=== PATIENT | female | born 1950 | race Caucasian/White ===

== ENCOUNTER → 2017-04-18 | Outpatient (CLI) | payer MEDICARE | LOC: RAD 09:28 | DX: M19.011 Primary osteoarthritis, right shoulder (principal); M19.012 Primary osteoarthritis, left shoulder ==

== ENCOUNTER 2020-11-29 13:07 | Outpatient (RCR) | payer MEDICARE | END 2021-02-11 | disposition home or self-care (01) | LOC: CARDREHAB 13:07 | DX: Z48.812 Encounter for surgical aftercare following surgery on the circulatory system (principal); Z95.2 Presence of prosthetic heart valve ==

== ENCOUNTER 2020-12-30 10:56 | Outpatient (RCR) | payer MEDICARE | END 2021-02-11 | disposition home or self-care (01) | LOC: PT 10:56 | DX: M25.511 Pain in right shoulder (principal); M25.512 Pain in left shoulder ==

== ENCOUNTER → 2021-01-20 | Outpatient (CLI) | payer MEDICARE | LOC: RAD 12:58 | DX: D17.22 Benign lipomatous neoplasm of skin and subcutaneous tissue of left arm (principal); M19.011 Primary osteoarthritis, right shoulder ==

== ENCOUNTER → 2021-01-26 | Outpatient (CLI) | payer MEDICARE | LOC: MAMMO 10:19 | DX: Z12.31 Encounter for screening mammogram for malignant neoplasm of breast (principal) ==

== ENCOUNTER 2021-02-14 11:00 | Outpatient (RCR) | payer MEDICARE | END 2021-03-14 | disposition home or self-care (01) | LOC: CARDREHAB | DX: Z48.812 Encounter for surgical aftercare following surgery on the circulatory system (principal); Z95.4 Presence of other heart-valve replacement ==

== ENCOUNTER 2021-02-16 10:00 | Outpatient (RCR) | payer MEDICARE | END 2021-02-16 17:00 | disposition home or self-care (01) | LOC: PT 10:00 | DX: M25.511 Pain in right shoulder (principal); M25.512 Pain in left shoulder ==

== ENCOUNTER 2021-05-26 12:56 | Outpatient (RCR) | payer MEDICARE | END 2021-06-11 | disposition home or self-care (01) | LOC: PT | DX: M19.012 Primary osteoarthritis, left shoulder (principal) ==

== ENCOUNTER 2021-06-13 13:00 | Outpatient (RCR) | payer MEDICARE | END 2021-07-12 | disposition home or self-care (01) | LOC: PT | DX: M19.012 Primary osteoarthritis, left shoulder (principal) ==

== ENCOUNTER 2021-07-14 12:59 | Outpatient (RCR) | payer MEDICARE | END 2021-08-11 | disposition home or self-care (01) | LOC: PT | DX: M19.012 Primary osteoarthritis, left shoulder (principal) ==

== ENCOUNTER 2021-08-29 09:59 | Outpatient (RCR) | payer MEDICARE | END 2021-09-11 | disposition home or self-care (01) | LOC: PT | DX: M19.011 Primary osteoarthritis, right shoulder (principal) ==

== ENCOUNTER 2021-09-12 07:55 | Outpatient (RCR) | payer MEDICARE | END 2021-10-12 | disposition home or self-care (01) | LOC: PT | DX: M19.011 Primary osteoarthritis, right shoulder (principal) ==

== ENCOUNTER 2021-11-14 08:02 | Outpatient (RCR) | payer MEDICARE | END 2021-12-12 | disposition home or self-care (01) | LOC: PT | DX: Z96.611 Presence of right artificial shoulder joint (principal) ==

== ENCOUNTER 2021-12-14 09:30 | Outpatient (RCR) | payer MEDICARE | END 2022-01-11 | disposition home or self-care (01) | LOC: PT | DX: M19.011 Primary osteoarthritis, right shoulder (principal) ==

== ENCOUNTER → 2023-11-15 | Outpatient (CLI) | payer MEDICARE | LOC: MAMMO 10:01 | DX: Z12.31 Encounter for screening mammogram for malignant neoplasm of breast (principal) ==